=== PATIENT | female | born 1950 | race African-American/Black ===

== ENCOUNTER 2017-10-24 13:58 | Emergency (ER) | payer MEDICARE, OTHER ==
--- NOTE | 2017-10-24 18:39 | ER Document Report ---
ED General - General Chief Complaint: Breathing Difficulty Stated Complaint: BREATHING DIFFICULTY Time Seen by Provider: 10/24/17 14:41 Mode of Arrival: Ambulatory Information source: Patient Notes: Patient presents stating that she is out of oxygen for her tank. She states she has no more oxygen at home. She denies any other significant symptoms or problems. She states she would just like to have her oxygen tank refilled. Symptoms are constant. They are mild. Nothing makes them better or worse. There is no radiation of symptoms. TRAVEL OUTSIDE OF THE [place] IN LAST 30 DAYS: No - Related Data Allergies/Adverse Reactions: No Known Allergies Allergy (Verified 10/24/17 13:59) Past Medical History - Social History Smoking Status: Current Every Day Smoker Chew tobacco use (# tins/day): No Frequency of alcohol use: None Drug Abuse: None Family History: Reviewed & Not Pertinent Patient has suicidal ideation: No Patient has homicidal ideation: No - Past Medical History Cardiac Medical History: Reports: Hx Heart Attack, Hx Hypertension Pulmonary Medical History: Reports: Hx COPD Endocrine Medical History: Reports: Hx Diabetes Mellitus Type 2 Renal/ Medical History: Denies: Hx Peritoneal Dialysis Past Surgical History: Reports: Hx Cardiac Surgery - stent Review of Systems - Review of Systems Constitutional: denies: Chills, Fever Cardiovascular: denies: Chest pain, Palpitations Respiratory: denies: Cough, Short of breath Physical Exam - Vital signs Vitals: Temp Pulse Resp BP Pulse Ox 98.2 F 102 H 20 120/60 99 10/24/17 14:30 10/24/17 14:30 10/24/17 14:30 10/24/17 14:30 10/24/17 14:30 Interpretation: Normal - General General appearance: Appears well, Alert In distress: None - HEENT Head: Normocephalic, Atraumatic Eyes: Normal Pupils: PERRL - Respiratory Respiratory status: No respiratory distress Chest status: Nontender Breath sounds: Normal Chest palpation: Normal - Cardiovascular Rhythm: Regular Heart sounds: Normal auscultation Murmur: No - Abdominal Inspection: Normal Distension: No distension Bowel sounds: Normal Tenderness: Nontender Organomegaly: No organomegaly - Back Back: Normal, Nontender - Extremities General upper extremity: Normal inspection, Nontender, Normal color, Normal ROM , Normal temperature General lower extremity: Normal inspection, Nontender, Normal color, Normal ROM , Normal temperature, Normal weight bearing. No: Filiberto's sign - Neurological Neuro grossly intact: Yes Cognition: Normal Orientation: AAOx4 Tyrese Coma Scale Eye Opening: Spontaneous [place] Coma Scale Verbal: Oriented [place] Coma Scale Motor: Obeys Commands [place] Coma Scale Total: 15 Speech: Normal Motor strength normal: LUE, RUE, LLE, RLE Sensory: Normal - Psychological Associated symptoms: Normal affect, Normal mood - Skin Skin Temperature: Warm Skin Moisture: Dry Skin Color: Normal Course - Re-evaluation Re-evalutation: 10/24/17 18:36 after many differnet avenues to obtain a tank were tried, EMS brought the patient a tank. - Vital Signs Vital signs: Temp Pulse Resp BP Pulse Ox 98.2 F 102 H 20 120/60 99 10/24/17 14:30 10/24/17 14:30 10/24/17 14:30 10/24/17 14:30 10/24/17 14:30 Discharge - Discharge Clinical Impression: Medicine refill Condition: Stable Disposition: HOME, SELF-CARE Additional Instructions: Please call your primary care provider as soon as possible to make sure that you are able to obtain extra oxygen tanks.
[2017-10-24 18:43] VITALS: BP 119/81
== END 2017-10-24 18:44 | disposition home or self-care (01) ==
LOC: ER 13:58
DX: Z76.0 Encounter for issue of repeat prescription (principal); R06.00 Dyspnea, unspecified; Z99.81 Dependence on supplemental oxygen; F17.200 Nicotine dependence, unspecified, uncomplicated; I10 Essential (primary) hypertension; E11.9 Type 2 diabetes mellitus without complications; J44.9 Chronic obstructive pulmonary disease, unspecified; I25.2 Old myocardial infarction
CPT/HCPCS: 99281